=== PATIENT | female | born 1980 | race African-American/Black ===

== ENCOUNTER 2017-09-06 00:08 | Emergency (ER) | payer MEDICAID, OTHER ==
[~2017-09-06] VITALS: Ht 154.9 cm; Wt 113.4 kg
[~2017-09-06 00:08] MED LIST: ACCUNEB SO1.25 MG/1 INH; ALBUTEROL INHAL17 GM IH; ALBUTEROL2.5 MG/0.5 IH; ALBUTEROL2.5 MG/0.5 INH; AVELOX400 MG PO; BACTRIM DS TAB1 EACH PO; BACTROBAN NASAL1 GM NASAL; CHERACOL COUGH120 ML PO; DICLOFENAC SODI25 MG PO; DIFLUCAN150 MG PO; DOXYCYCLINE 10100 MG PO; HIBICLENS120 ML TP; IBUPROFEN 600600 M1 PO; IBUPROFEN 800800 M1 PO; IBUPROFEN 800800 MG PO; MEDROL DOSPAK21 TAB PO; MEDROLDOSEPACK PO; NAPROSYN500 MG PO; NOHOMEMEDICATIONS; NORCO 5-325 TA1 EACH PO; NYSTATIN1 EA10 TOP; PREDNISONE 20 M20 M1 PO; PREDNISONE50 MG PO; PROAIR HFA8.5 GM INH; PROMETHAZINE12.5 M1 PO; PROVENTIL HFA6.7 G1 INH; TESSALON PERLE100 MG PO; TUSSIONEX PENN473 ML PO; ULTRAM 50MG TAB50 MG PO; ZOFRAN ODT4 MG PO; ZOFRAN ODT8 MG PO; ZPAK PO
[2017-09-06 01:11] VITALS: BP 120/67
[2017-09-06 02:25] LABS: URINE BILIRUBIN NEGATIVE (Negative); URINE BLOOD 1+ (Negative); URINE CLARITY CLEAR; URINE COLOR YELLOW; URINE GLUCOSE-RANDOM* NEGATIVE (Negative); URINE KETONES NEGATIVE (Negative); URINE NITRITE-REFLEX NEGATIVE (Negative); URINE PROTEIN (DIPSTICK) NEGATIVE (Negative); URINE UROBILINOGEN 0.2 E.U./dl (0.2-1.0)
[2017-09-06 02:26] LABS: URINE LEUKOCYTES-REFLEX TRACE (Negative)
[2017-09-06 02:38] LABS: BACTERIA-REFLEX 1-9 Few /HPF (None Seen); CASTS None Seen /LPF (None Seen); CRYSTALS None Seen /LPF (None Seen); MUCUS None Seen strn/LPF (None Seen); SQUAMOUS 0-3 Few /LPF (0-3); URINE RBC 3-10 Few /HPF (0-2); URINE WBC-REFLEX 0-5 Rare /HPF (0-5)
== END 2017-09-06 09:43 | disposition home or self-care (01) ==
LOC: ER 00:08
PROVIDERS: Emergency Medicine
DX: M54.9 Dorsalgia, unspecified (principal)